=== PATIENT | female | born 1995 | race Caucasian/White ===

== ENCOUNTER 2017-06-18 02:46 | Emergency (ER) | payer BC ==
[2017-06-18] MEDS ORDERED: Prochlorperazine 10 MG/2 ML SDV IVPUSH ONE (03:23)
[2017-06-18] MEDS ORDERED: diphenhydrAMINE 50 MG/ML SDV IVPUSH ONE (03:23)
[2017-06-18] MEDS ORDERED: Ketorolac 30 MG/ML SDV IVPUSH ONE (03:24)
--- NOTE | 2017-06-18 03:28 | EDM.PDOC ---
[id number] 4d HEADACHE Time Seen by Provider: 06/18/17 03:25 Source of Information: Reports: Patient History Limitations: Reports: No Limitations - History of Present Illness INITIAL COMMENTS - FREE TEXT/NARRATIVE: pt is having a severe headache over her entire head. She is nauseated but has not vomited. Her last migraine was about 2 years ago, Onset: Gradual, Other ( This has been waxing and waning over the past 2 days. ) Duration: Hour(s): Location: Reports: Head Associated Symptoms: Reports: Nausea/Vomiting Headache Pain Score (Numeric/FACES): 10 - Related Data Allergies Allergy/AdvReac Type Severity Reaction Status Date / Time No Known Allergies Allergy Verified 06/18/17 03:05 Home Meds: Home Meds Ibuprofen [Ibuprofen Ib] 1,200 mg PO ASDIRECTED 06/18/17 [History] Past Medical History HEENT History: Reports: Other (See Below) Other HEENT History: just finished a bad cold Gastrointestinal History: Reports: GERD Musculoskeletal History: Reports: Osteoarthritis Neurological History: Reports: Concussion, Migraines Psychiatric History: Reports: Anxiety, Depression, Schizophrenia, Other (See Below) Other Psychiatric History: personality disorder - Past Surgical History HEENT Surgical History: Reports: Tonsillectomy GI Surgical History: Reports: None Social & Family History - Tobacco Use Smoking Status *Q: Current Every Day Smoker Years of Tobacco use: 5 Packs/Tins Daily: 0.5 - Caffeine Use Caffeine Use: Reports: Soda - Recreational Drug Use Recreational Drug Use: No ED ROS GENERAL - Review of Systems Review Of Systems: See Below Constitutional: Reports: No Symptoms HEENT: Reports: No Symptoms Respiratory: Reports: No Symptoms Cardiovascular: Reports: No Symptoms Endocrine: Reports: No Symptoms GI/Abdominal: Reports: No Symptoms : Reports: No Symptoms Musculoskeletal: Reports: Other (pt hs a sevre headache. ) Skin: Reports: No Symptoms Neurological: Reports: Headache Psychiatric: Reports: Anxiety - Physical Exam Exam: See Below Text/Narrative:: pt arrived with a severe headache, She hs been nauseated but has not vomited. Exam Limited By: No Limitations General Appearance: Alert, Anxious, Severe Distress Ears: Normal TMs Nose: Normal Inspection Throat/Mouth: Normal Inspection Head Exam: Atraumatic Neck: Normal Inspection Respiratory/Chest: No Respiratory Distress Cardiovascular: Regular Rate, Rhythm GI/Abdominal: Soft, Non-Tender (Female) Exam: Deferred Rectal (Female) Exam: Deferred Neuro Exam (Abbreviated): Alert, Oriented, Normal Cognition Back Exam: Normal Inspection Extremities: Normal Inspection Psychiatric: Anxious Course - Vital Signs Last Recorded V/S: Last Vital Signs Temp 36.1 C 06/18/17 03:02 Pulse 86 06/18/17 04:33 Resp 16 06/18/17 04:33 BP 117/71 06/18/17 04:33 Pulse Ox 99 06/18/17 04:33 - Orders/Labs/Meds Meds: Medications Discontinued Medications Generic Name Dose Route Start Last Admin Trade Name Freq PRN Reason Stop Dose Admin Diphenhydramine HCl 25 mg 06/18/17 03:23 06/18/17 03:41 Benadryl IVPUSH 06/18/17 03:24 25 mg ONETIME ONE Administration Sodium Chloride 1,000 mls @ 500 mls/hr 06/18/17 03:30 06/18/17 03:36 Normal Saline IV 500 mls/hr ASDIRECTED MI Administration Ketorolac Tromethamine 30 mg 06/18/17 03:24 06/18/17 03:40 Toradol IVPUSH 06/18/17 03:25 30 mg ONETIME ONE Administration Prochlorperazine Edisylate 10 mg 06/18/17 03:23 06/18/17 03:45 Compazine IVPUSH 06/18/17 03:24 10 mg ONETIME ONE Administration - Re-Assessments/Exams Free Text/Narrative Re-Assessment/Exam: 06/18/17 03:53 iv was started and she was given benadryl 25, compazine 10mg, torodol 30mg iv. She got excelent relief. Her paimn is now down to 3, 06/18/17 04:29 06/18/17 18:10 pt had excellent results with this combination Departure - Departure Time of Disposition: 04:30 Disposition: Home, Self-Care 01 Condition: Fair Clinical Impression: Migraine headache - Discharge Information Instructions: Migraine Headache Referrals: PCP,None [Primary Care Provider] - Forms: ED Department Discharge Care Plan Goals: push fluids, low activity, rest. rtc if problems.
[2017-06-18] MEDS ORDERED: Sodium Chloride 0.9% 1,000 ML IV SCH (03:30)
[2017-06-18 04:34] VITALS: BP 117/71
== END 2017-06-18 04:53 | disposition home or self-care (01) ==
LOC: JP.ED 02:46
DX: G43.909 Migraine, unspecified, not intractable, without status migrainosus (principal); K21.9 Gastro-esophageal reflux disease without esophagitis; M19.90 Unspecified osteoarthritis, unspecified site; F20.9 Schizophrenia, unspecified; F17.210 Nicotine dependence, cigarettes, uncomplicated; Z98.890 Other specified postprocedural states
CPT/HCPCS: 96374; 96375; 99284; J0780; J1200; J1885; J7040